=== PATIENT | female | born 1995 | race African-American/Black ===

== ENCOUNTER 2018-05-14 15:23 | Emergency (ER) | payer OTHER | END 2018-05-14 16:21 | disposition left against medical advice (07) | LOC: ER 15:23 | DX: Z53.21 Procedure and treatment not carried out due to patient leaving prior to being seen by health care provider (principal) ==

== ENCOUNTER 2019-10-04 20:40 | Emergency (ER) | payer SELFPAY ==
[~2019-10-04] VITALS: Ht 160 cm; Wt 61.0 kg
[2019-10-05] MEDS ORDERED: CEFTRIAXONE SODIUM 250 MG/VIAL IM ONE (02:15)
[2019-10-05] MEDS ORDERED: AZITHROMYCIN 500 MG TABLET PO ONE (02:15)
[2019-10-05 02:30] VITALS: BP 117/90
[2019-10-08 04:14] LABS: NEISSERIA GONORRHOEAE NAA Negative (Negative)
== END 2019-10-05 03:05 | disposition home or self-care (01) ==
LOC: ER 20:40
DX: S63.613A Unspecified sprain of left middle finger, initial encounter (principal); Z20.2 Contact with and (suspected) exposure to infections with a predominantly sexual mode of transmission; J45.909 Unspecified asthma, uncomplicated; X58.XXXA Exposure to other specified factors, initial encounter; Y93.89 Activity, other specified; Y92.018 Other place in single-family (private) house as the place of occurrence of the external cause
CPT/HCPCS: 81025; 87491; 87591; 96372; 99283; J0696

== ENCOUNTER 2020-04-20 05:43 | Emergency (ER) | payer MEDICAID ==
[~2020-04-20] VITALS: Ht 160 cm; Wt 52.0 kg
[2020-04-20] MEDS ORDERED: IBUPROFEN 600MG TABLET PO ONE (06:15)
[2020-04-20] MEDS ORDERED: BACITRACIN ZINC OINT UDPKT TOP ONE (06:15)
[2020-04-20 08:30] VITALS: BP 121/80
== END 2020-04-20 08:30 | disposition home or self-care (01) ==
LOC: ER 05:43
DX: S00.81XA Abrasion of other part of head, initial encounter (principal); S70.01XA Contusion of right hip, initial encounter; J45.909 Unspecified asthma, uncomplicated; F12.10 Cannabis abuse, uncomplicated; F17.210 Nicotine dependence, cigarettes, uncomplicated; Z98.890 Other specified postprocedural states; Y04.0XXA Assault by unarmed brawl or fight, initial encounter; Y93.89 Activity, other specified; Y92.488 Other paved roadways as the place of occurrence of the external cause
CPT/HCPCS: 70486; 73502; 81025; 93005; 99285

== ENCOUNTER 2024-05-12 12:08 | Emergency (ER) | payer MEDICAID ==
[~2024-05-12] VITALS: Ht 160 cm; Wt 64.0 kg
[2024-05-12 12:14] VITALS: TEMP 98.7; O2SAT 99
[2024-05-12 12:18] VITALS: O2SAT 100
[2024-05-12 12:47] VITALS: BP 132/88; PULSE 95; RESP 16
[2024-05-12] MEDS: HYDROCODONE/ACETAMINOPHEN 5/325MG TABLET PO STA (12:47)
[2024-05-12] MEDS: ONDANSETRON HCL 4MG/2ML INJ IM STA (12:47)
[2024-05-12] MEDS: FLUORESCEIN SODIUM 1MG/STRIP LEFTEYE ONE (13:00)
[2024-05-12] MEDS: TETRACAINE 0.5% OPHTH DROPS 4ML LEFTEYE ONE (13:00)
[2024-05-12] MEDS ORDERED: BALANCED SALT IRRIG SOLN 15ML IR ONE (13:00)
[2024-05-12] MEDS: BALANCED SALT IRRIG SOLN 15ML IR NR (14:30)
[2024-05-12] MEDS ORDERED: NAPR-681 MT (14:41)
[2024-05-12] MEDS ORDERED: CIPR2.5D20 LEFTEYE (14:41)
[2024-05-12] MEDS ORDERED: ONDA-239 PO (14:54)
== END 2024-05-12 15:39 | disposition home or self-care (01) ==
LOC: ER 12:08
DX: S05.12XA Contusion of eyeball and orbital tissues, left eye, initial encounter (principal); S05.02XA Injury of conjunctiva and corneal abrasion without foreign body, left eye, initial encounter; F12.90 Cannabis use, unspecified, uncomplicated; Y04.0XXA Assault by unarmed brawl or fight, initial encounter; Y93.89 Activity, other specified; Y92.89 Other specified places as the place of occurrence of the external cause; Y99.8 Other external cause status
CPT/HCPCS: 99285; 70450; 70486; 96372; J2405